=== PATIENT | male | born 1990 | race Caucasian/White ===

== ENCOUNTER 2017-01-21 07:56 | Emergency (ER) | payer SELFPAY ==
[~2017-01-21] VITALS: Ht 167.6 cm; Wt 65.0 kg
[2017-01-21 08:00] VITALS: Ht 167.6 cm; Wt 65.0 kg
[2017-01-21] MEDS ORDERED: FLUORESCEIN STRIP LEFT EYE ONE (08:30)
[2017-01-21] MEDS ORDERED: TETRACAINE 0.5% 4 ML OPH LEFT EYE SCH (08:30)
--- NOTE | 2017-01-21 09:02 | ERD ---
ER Documentation Chief Complaint Date/Time DATE: 01/21/17 TIME: 09:00 Chief Complaint Complains of eye pain since last night HPI 26-year-old male patient with no significant past medical history presents the ED complaining of a left eye injury that occurred 4 days ago on Wednesday. Reports that he was at work and was cutting a piece of metal and it accidentally poked his left eye. Denies wearing any protective eyeglasses. Denies wearing any glasses or contacts. Denies any fever, headache, numbness or tingling, vomiting, chills. ROS All systems reviewed and are negative except as per history of present illness. Medications Home Meds Active Scripts Polymyxin B Sulfate-TMP* (Polymyxin B-TMP Eye Drops*) 10 Ml Drops, 2 DROP LEFT EYE Q4 for 10 Days, #1 EA Prov:CABRERA MCKEON PA-C 01/21/17 Allergies Allergies: Coded Allergies: No Known Allergy (Unverified , 01/21/17) PMhx/Soc History of Surgery: No Anesthesia Reaction: No Hx Neurological Disorder: No Hx Respiratory Disorders: No Hx Cardiac Disorders: No Hx Psychiatric Problems: No Hx Miscellaneous Medical Probl: No Hx Alcohol Use: Yes (OOC) Hx Substance Use: No Hx Tobacco Use: No Physical Exam Vitals Vital Signs Date Time Temp Pulse Resp B/P Pulse Ox O2 Delivery O2 Flow Rate FiO2 01/21/17 09:32 77 18 128/74 99 Room Air 01/21/17 08:00 97.5 77 20 124/64 97 Physical Exam Const: Lvg-pts-[id number], well-nourished. In no acute distress. Head: Atraumatic, normocephalic. 1 mm metal foreign body noted on the mid cornea region. Look at [facility] for further examination of the bilateral eyes with Zuñiga Lamp. Eyes: Normal Conjunctiva without injection. No purulent discharge. PERRLA. EOMI ENT: Normal external ear. Ear canal without erythema. Tympanic membrane pearly belcher without effusion or bulging. Nasal canal clear with normal turbinates. Moist oropharynx without tonsillar exudates. Non-erythematous pharynx. Uvula midline. No drooling. No trismus. Neck: No cervical midline tenderness. Full range of motion. No meningismus. No cervical lymphadenopathy. No JVD. Resp: Clear to auscultation bilaterally. No wheezing, rhonchi, rales, or crackles. No accessory muscle use. No retractions. Cardio: Regular rate and rhythm. No murmurs, rubs or gallops. Skin: Normal skin turgor. No petechiae or rashes Ext: No cyanosis, or edema. Distal pulses intact bilaterally. Neur: Awake and alert. Normal gait. Normal coordination. Cranial Nerves II- VII intact. Normal finger to nose. Muscle strength 5/5. Sensation intact. Psych: Normal Mood and Affect Results 24 hrs Current Medications Medications (Trade) Dose Ordered Sig/Troy Route PRN Reason Start Time Stop Time Status Last Admin Dose Admin Tetracaine HCl (Tetracaine 0.5% Steri-Unit Gaby) 1 drop NOW LEFT EYE 01/21/17 08:30 01/21/17 09:59 DC 01/21/17 08:25 Fluorescein Sodium (Pzjdg-L-Rpkth) 1 strip ONCE ONCE LEFT EYE 01/21/17 08:30 01/21/17 08:31 DC 01/21/17 08:25 Diphtheria/ Tetanus/Acell Pertussis (Adacel) 0.5 ml ONCE ONCE IM* 01/21/17 09:30 01/21/17 09:31 DC 01/21/17 09:27 Procedures/MDM 26-year-old male patient with no significant past medical history presents the ED complaining of a left eye foreign body he sustained 4 days ago while at work. Reports that he was working with metal and accidentally got a piece of it into his left eye. Patient is afebrile nontoxic appearing. Patient has normal vital signs. Patient gave consent to do a Zuñiga lamp at this time. Eye Exam w/ Wood's lamp: Visual Acuity: [R 20/25 L20/100 Bilateral 20/30] Visual Manley: Intact in all four quadrants bilaterally Lac ducts/glands: No swelling Lids w/ evertion: Normal, 1 mm metal foreign body noted of mid cornea region Conj/Sarah: Clear, negative Bon's, fluorescein stain surrounding the metal 1 mm foreign body noted on the mid cornea An attempt to remove the foreign body was performed using a flat surface of small insulin needle, however since it has been 4 days, slight epithelium may have formed over the foreign body therefore patient could benefit from seeing an prison warden for further evaluation and removal of the foreign body. No complications or injuries after attempt of the procedure. Patient's ocular symptoms have stabilized while they have been evaluated in the department and are appropriate for outpatient work up. Low suspicion for ruptured globe, retinal detachment, periorbital cellulitis, acute angle closure glaucoma, deep space infection, iritis, traumatic hyphema, conjunctivitis, subconjunctival hemorrhage, pterygium, hypopyon, blepharitis, hordeolum, chalazion, or other emergent conditions. This case was discussed with my supervising physician, Dr. Allen who agreed with the management and discharge plan. Discharge medications: Polytrim Strictly instructed patient to follow up with an prison warden within 24 hours for further evaluation and treatment. Strictly instructed patient to follow-up with an prison warden right after being discharged. Instructed patient to return to the ED for any worsening symptoms. Patient is hemodynamically stable. Patient's questions were answered. Patient understood and agreed with discharge plan. Departure Diagnosis: Primary Impression: Foreign body in eye Encounter type: initial encounter Laterality: left Qualified Code: T15.92XA - Foreign body in eye, left, initial encounter Condition: Stable Patient Instructions: Foreign Object in the Cornea [facility] Usted se kearney hecho un examen mdico de control que le indica que no est en johnathan condicin que requiera tratamiento urgente en el Departamento de Emergencia. Un estudio ms profundo y el tratamiento de yancey condicin pueden esperar sin ningn riesgo hasta que usted sea atendida/o en el consultorio de yancey mdico o johnathan cl tamar. Es responsabilidad suya arreglar johnathan karen para el seguimiento del lucero. MANEJO DE CONDICIONES NO URGENTES EN EL FUTURO 1) Si usted tiene un mdico de atencin primaria: Usted debera llamar a yancey mdico de atencin primaria antes de venir al departamento de emergencia. Despus de las horas de consultorio, yancey doctor o yancey asociado/a est disponible por telfono. El mdico o enfermero de octavio en el servicio telefnico puede asesorarle por mamta medio para atender el problema, o lucero contrario se puede programar johnathan karen. 2) Si usted no tiene un mdico de atencin primaria: Llame al mdico o clnica de referencia que aparece abajo elen las horas de consultorio para hacer johnathan karen para que le vean. CLINICAS: [facility] [phone] [facility] [phone] [facility] [phone] [facility] [facility] [place] [phone] [facility]. [place] [address] [phone] [facility] [phone] [address] [facility]. [facility] () Usted se kearney hecho un examen mdico de control que le indica que no est en johnathan condicin que requiera tratamiento urgente en el Departamento de Emergencia. Un estudio ms profundo y el tratamiento de yancey condicin pueden esperar sin ningn riesgo hasta que usted sea atendida/o en el consultorio de yancey mdico o johnathan cl tamar. Es responsabilidad suya arreglar johnathan karen para el seguimiento del lucero. MANEJO DE CONDICIONES NO URGENTES EN EL FUTURO 1) Si usted tiene un mdico de atencin primaria: Usted debera llamar a yancey mdico de atencin primaria antes de venir al departamento de emergencia. Despus de las horas de consultorio, yancey doctor o yancey asociado/a est disponible por telfono. El mdico o enfermero de octavio en el servicio telefnico puede asesorarle por mamta medio para atender el problema, o lucero contrario se puede programar johnathan karen. 2) Si usted no tiene un mdico de atencin primaria: Llame al mdico o condado institucions de referencia que aparece abajo elen las horas de consultorio para hacer johnathan karen para que le vean. SI USTED NO PUEDE PAGAR PARA SHOAIB UN MEDICO puede ir a: [facility] [address] [place] [address] [facility] [address] [place] [address] [facility] [address] [place] [address] [facility] [address] [place], [place] [id number] [facility] Hours: Mon - Fri 9:00 AM - 5:00 PM Additional Instructions: Seguimiento con opthalomologist dentro de 24 horas Regrese a estas instalaciones si no se mejora lauren esperbamos o lauren le dijimos. CABRERA MCKEON PA-C Jan 21, 2017 09:02
[2017-01-21] MEDS ORDERED: POLY10DR19 LEFT EYE (09:15)
[2017-01-21] MEDS ORDERED: DIPHTH/TET/ACEL PERTUSS (ADULT) 0.5 ML VIAL IM* ONE (09:30)
[2017-01-21 09:32] VITALS: BP 128/74; PULSE 77; RESP 18
== END 2017-01-21 09:32 | disposition home or self-care (01) ==
LOC: FTE 07:56
DX: T15.92XA Foreign body on external eye, part unspecified, left eye, initial encounter (principal); X58.XXXA Exposure to other specified factors, initial encounter; Y92.9 Unspecified place or not applicable; Z23 Encounter for immunization
CPT/HCPCS: 90471; 90715